=== PATIENT | male | born 2005 | race Caucasian/White ===

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

== ENCOUNTER 2025-01-08 13:39 | Emergency (ER) | payer MEDICAID ==
[~2025-01-08] VITALS: Ht 182.9 cm; Wt 73.5 kg
[~2025-01-08 13:39] MED LIST: IBUP-1986 PO
[2025-01-08 13:41] VITALS: BP 146/86; PULSE 101; O2SAT 96
--- NOTE | 2025-01-08 14:30 | Physician Documentation ---
History of Present Illness ~ Chief Complaint: Rash Stated Complaint: MED CLEARANCE Time Seen by MD: 13:56 HPI This is a 19-year-old male who presents with an area of pain and redness to his lower right jhaveri, patient reports that he injured the area proximally three months ago and it appeared the wound had become infected, patient reports that he has been prescribed antibiotics for this however never took them in the wound began healing on its own however pain and redness has persisted. Patient reports the area of the redness and pain has decreased somewhat. Patient reports no fever and reports no other acute symptoms or concerns. Medication Reconciliation Allergies: Coded Allergies: peanut (Verified Allergy, Intermediate, SOB, 01/08/25) Scheduled Cephalexin*Monohydrate* (Keflex*), 1 CAP PO QID Ibuprofen (Ibuprofen), 1 TAB PO Q8H Past Medical History Past Medical History: No Pertinent History Past Surgical History: noncontributory Lives In: Home Review of Systems ROS As stated above in the HPI, otherwise all systems are reviewed and negative. Physical Exam Vital Signs: Temperature: 97.6, Source: Temporal, Heart Rate: 101, Respiratory Rate: 12, BP: 146/86, Pulse Oximetry: 96, Weight: 73.500 Oxygen Flow Rate: 0 Physical Exam VITALS: Reviewed and as above. GENERAL: Alert, nontoxic appearing, no apparent distress. RESPIRATORY: No increased work of breathing, no respiratory distress, speaking in full clear sentences CV: Brisk capillary refill to the toes of right foot, pedal pulse of right foot intact SKIN: Approximately 6 cm x 8 cm area of erythema and mild induration with healing dry shallow wound at the center to the right lower anterior jhaveri, area tender to palpation, no deep tenderness to palpation, no fluctuance, induration and tenderness does not extend past the area of erythema NEURO: Sensation intact to right foot Progress Results/Orders Results/Orders Completed Orders - MABEL COELLO [employer] [employer] Ketorolac Trometh 15mg/Ml Vial (Toradol (01/08/25 14:20) Cephalexin Capsule (Keflex Capsule) (01/08/25 14:20) Vital Signs 01/08/25 01/08/25 01/08/25 13:41 14:36 14:46 Temp 97.6 97.6 Pulse 101 Resp 12 16 B/P (MAP) 146/86 Pulse Ox 96 O2 Flow Rate 0 Medical Decision Making Additional information obtaine: N/A Findings This 19-year-old male presented with approximately three months of erythema and tenderness to his right anterior jhaveri after sustaining a wound to the area, it is reassuring patient reported no other past medical history and reported no fevers. Physical exam is consistent with uncomplicated cellulitis, I have low suspicion for deep tissue infection including necrotizing fasciitis as there was no pain out of proportion on exam and no tenderness to deep palpation. Abscess considered though no purulent drainage or fluctuance. Additionally it is reassuring patient reported the area of pain and swelling has decreased on its own however given induration and erythema to the area a course of oral antibiotics is indicated. The limb is neurovascularly intact and the patient is otherwise well-appearing with remainder of physical exam benign. Patient provided home care instructions, return to care precautions, and follow up instructions which he verbalized understanding of. Differential Dx:Considerations: Include: Abscess, Atopic dermatitis, Candidiasis, Contact dermatitis, Drug reaction, Erythema multiforme, Erysipelas, Gangrene, Herpes zoster, Impetigo, Molluscum contagiosum, Pediculosis, Pityriasis rosea, Psoriaisis, Scabies, Tinea, Varicella, Viral exanthema Departure Time of Disposition: 14:33 Disposition: 01 HOME / SELF CARE / HOMELESS Impression: Primary Impression: Cellulitis Qualified Codes: L03.115 - Cellulitis of right lower limb Condition: Improved Discharge Instructions: Cellulitis, Adult Additional Instructions: Please use the antibiotics as prescribed. Keep the wound area clean dry and covered. Wash the area at least once a day. You may use ibuprofen and or Tylenol as needed for pain as directed by [id number] packaging. Please follow up with your primary care provider in the next few days. Please return to the emergency department for any new or worsening concerning symptoms but not limited to worsening pain and swelling to the area or if you develop a fever. Referrals: NO PRIMARY CARE PROVIDER (PCP) Prescriptions Cephalexin*Monohydrate* (Keflex*) 500 Mg Capsule 1 CAP PO QID, #40 CAP Prov: MABEL COELLO 01/08/25 Education Educated: Patient Educated regarding: diagnosis, treatment, prognosis, need for follow up Signature Scribe Signature: No scribe Attestation: The note accurately reflects work and decisions made by me.KATHERINE Basurto 01/09/25 12:00 MABEL COELLO Jan 08, 2025 14:30
[2025-01-08] MEDS ORDERED: CEPH-585 PO (14:35)
[2025-01-08 14:36] VITALS: RESP 16
[2025-01-08] MEDS: ketorolac trometh 15mg/ml vial 15 MG/ML ML IM ONE (14:36)
[2025-01-08 14:46] VITALS: TEMP 97.6
== END 2025-01-08 14:47 | disposition home or self-care (01) ==
LOC: ER 13:40
DX: L03.115 Cellulitis of right lower limb (principal); Z91.010 Allergy to peanuts; Z79.899 Other long term (current) drug therapy
CPT/HCPCS: 96372; 99283; J1885